=== PATIENT | male | born 1980 | race Hispanic/Latino ===

== ENCOUNTER 2017-07-28 18:35 | Emergency (ER) | payer OTHER, SELFPAY ==
--- NOTE | 2017-07-28 19:59 | CT ---
CT OF BRAIN PERFORMED WITHOUT CONTRAST ENHANCEMENT: 07/28/17 HISTORY: Left sided headache. COMPARISON: 06/29/10 study. The ventricular and cisternal system is within normal limits. There is no signs of intracerebral hem orrhage or extra-axial fluid collections. Mastoid air cells and visualized sinuses are clear. IMPRESSION: No acute intracranial abnormalities. POS: [facility]
[2017-07-28] MEDS ORDERED: Metoclopramide HCl 10 MG/2 ML VIAL ONE (20:02)
[2017-07-28] MEDS ORDERED: Acetaminophen 500 MG TAB ONE (20:02)
[2017-07-28] MEDS ORDERED: diphenhydrAMINE 50 MG/ML VIAL ONE (20:02)
== END 2017-07-28 21:27 | disposition home or self-care (01) ==
LOC: ERS 18:35
DX: R51 Headache (principal)
CPT/HCPCS: 70450; 96361; 96374; 96375; J1200; J2765

== ENCOUNTER 2019-01-12 20:47 | Emergency (ER) | payer OTHER, SELFPAY ==
[2019-01-12] MEDS ORDERED: Ketorolac Tromethamine 60 MG/2 ML VIAL ONE (22:39)
[2019-01-12 23:12] LABS: MONO NEGATIVE CONTROL ZONE White (Negative) (White); MONO POSITIVE CONTROL Pink Line (Positive) (PINK/RED); Mononucleosis NEGATIVE (NEGATIVE)
== END 2019-01-13 00:16 | disposition home or self-care (01) ==
LOC: ERS 20:47
DX: J02.9 Acute pharyngitis, unspecified (principal); B02.9 Zoster without complications
CPT/HCPCS: 36415; 86308; 87081; 87430; 96372; J1885

== ENCOUNTER 2025-05-18 15:57 | Observation (INO) | payer SELFPAY ==
[2025-05-18 16:54] LABS: #Basophils Less than 0.03 10x3/uL (0.0-0.2); #Eosinophils 0.09 10x3/uL (0.0-0.7); #Monocytes 0.43 10x3/uL (0.11-0.59); #Neutrophils 4.20 10x3/uL (1.40-6.50); %Basophils 0.3 % (0.0-1.0); %Eosinophils 1.4 % (0.0-10.0); %Lymphocytes 26.9 % (21.0-51.0); %Monocytes 6.6 % (0.0-10.0); %Neutrophils 64.5 % (42.0-75.0); Hematocrit 38.7 % (42.0-52.0); Hemoglobin 13.4 g/dL (14.0-18.0); Mean Corpuscular Hemoglobin 29.3 pg (27.0-31.0); Mean Corpuscular Volume 84.5 fL (78.0-98.0); Platelet Count 154 10x3/uL (130-400); Red Blood Cell (RBC) Count 4.58 mill/uL (4.70-6.10); White Blood Cell (WBC) Count 6.51 10x3/uL (4.8-10.8)
[2025-05-18] MEDS ORDERED: Nitroglycerin 0.4 MG TAB 1 EACH ONE (17:08)
[2025-05-18] MEDS ORDERED: Aspirin Chewable 81 MG TAB ONE (17:08)
[2025-05-18 17:19] LABS: Troponin I Less than 0.010 ng/mL (< 0.028)
[2025-05-18 17:25] LABS: ALT (SGPT) 43 U/L (Less than 45); AST (SGOT) 33 U/L (11-34); Albumin 4.1 g/dL (3.1-4.5); Alkaline Phosphatase 87 U/L (40-110); Anion Gap 12 mmol/L (10-20); BUN (Urea Nitrogen) 11 mg/dL (8.9-20.6); Bilirubin, Total 0.5 mg/dL (0.3-1.2); Calc. Creatinine Clearance 0 mL/min (70-130); Calcium 8.5 mg/dL (7.8-10.44); Carbon Dioxide 23 mmol/L (22-29); Chloride 110 mmol/L (98-107); Globulin 3.0 g/dL (2.4-3.5); Glucose 99 mg/dL (70-105); Lipase 38 U/L (8-78); Potassium 3.7 mmol/L (3.5-5.1); Sodium 141 mmol/L (136-145)
[2025-05-18] MEDS ORDERED: Nitroglycerin 2% Ointment 1 INCH/1 GM Packet TOP PRN (20:17)
[2025-05-18] MEDS ORDERED: Ondansetron PF 4 MG/2 ML Vial IVP PRN (20:17)
[2025-05-18] MEDS ORDERED: Acetaminophen 325 MG TAB PO PRN (20:17)
[2025-05-19 00:25] LABS: Troponin I Less than 0.010 ng/mL (< 0.028)
[2025-05-19 00:38] VITALS: BMI 28.4
[2025-05-19 05:10] LABS: #Basophils Less than 0.03 10x3/uL (0.0-0.2); #Eosinophils 0.12 10x3/uL (0.0-0.7); #Monocytes 0.50 10x3/uL (0.11-0.59); #Neutrophils 3.94 10x3/uL (1.40-6.50); %Basophils 0.3 % (0.0-1.0); %Eosinophils 2.0 % (0.0-10.0); %Lymphocytes 24.5 % (21.0-51.0); %Monocytes 8.2 % (0.0-10.0); %Neutrophils 64.7 % (42.0-75.0); Hematocrit 38.8 % (42.0-52.0); Hemoglobin 13.2 g/dL (14.0-18.0); Mean Corpuscular Hemoglobin 29.4 pg (27.0-31.0); Mean Corpuscular Volume 86.4 fL (78.0-98.0); Platelet Count 150 10x3/uL (130-400); Red Blood Cell (RBC) Count 4.49 mill/uL (4.70-6.10); White Blood Cell (WBC) Count 6.09 10x3/uL (4.8-10.8)
[2025-05-19 05:27] LABS: Troponin I Less than 0.010 ng/mL (< 0.028)
[2025-05-19 05:53] LABS: Anion Gap 11 mmol/L (10-20); BUN (Urea Nitrogen) 12 mg/dL (8.9-20.6); Calc. Creatinine Clearance 104 mL/min (70-130); Calcium 8.6 mg/dL (7.8-10.44); Carbon Dioxide 23 mmol/L (22-29); Cardiac Risk 7.0 (Less than 4.5); Chloride 110 mmol/L (98-107); Cholesterol 155 mg/dl (< 200 Desired); Glucose 116 mg/dL (70-105); HDL Cholesterol 22 mg/dL (>60 Neg Risk); Potassium 4.5 mmol/L (3.5-5.1); Sodium 139 mmol/L (136-145); Triglycerides 550 mg/dL (Less than 150)
[2025-05-19] MEDS: Aspirin Chewable 81 MG TAB PO SCH (12:23)
[2025-05-19 12:34] VITALS: BP 126/84; TEMP 98.3
== END 2025-05-19 15:15 | disposition home or self-care (01) ==
LOC: ERS 15:57 → OBS 20:21
PROVIDERS: ADMIT Internal Medicine; ATTEND Family Medicine
DX: R07.89 Other chest pain (principal); R91.1 Solitary pulmonary nodule; I10 Essential (primary) hypertension; Z79.82 Long term (current) use of aspirin; Z79.899 Other long term (current) drug therapy
CPT/HCPCS: 36415; 71046; 78452; 80048; 80053; 80061; 83690; 84484; 85025; 93005; 93017; 94760; 96374; A9502; G0378; J2270; J2785